=== PATIENT | male | born 2000 | race Caucasian/White ===

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

== ENCOUNTER 2024-03-31 12:46 | Emergency (ER) | payer OTHER ==
[~2024-03-31] VITALS: Ht 177.8 cm; Wt 81.8 kg
[~2024-03-31 12:46] MED LIST: AMITRIPTYLINE H10 M2 PO; LORATADINE10 MG PO; PREDNISONE20 MG PO; PRILOSEC OTC20 MG PO; PROTONIX20 M1 PO
[2024-03-31] MEDS ORDERED: NS 1,000 ML IV ONE (13:15)
[2024-03-31 15:45] VITALS: BP 107/79
[2024-04-01] MEDS ORDERED: AMITRIPTYLINE H25 M2 PO (17:02)
[2024-04-02 15:10] LABS: BASO # 0.05 K/mm3 (0.02-0.10); EOS # 0.43 K/mm3 (0.04-0.40); EOS % 3.9 % (0.0-4.0); HEMATOCRIT 42.4 % (42.0-52.0); HEMOGLOBIN 13.7 g/dL (13.5-18.0); LYMPH# 3.49 K/mm3 (1.50-4.00); MEAN CELL VOLUME 86 fl (78-100); MEAN CORPUSCULAR HEMOGLOBIN 28 pg (27-31); MEAN CORPUSCULAR HGB CONC 32 g/dL (33-37); MEAN PLATELET VOLUME 9.6 fl (7.4-10.4); MONO # 0.89 K/mm3 (0.20-0.80); NEU # 6.06 K/mm3 (1.40-6.50); PLATELET COUNT 425 K/mm3 (130-400); RED BLOOD COUNT 4.92 M/mm3 (4.20-5.60); RED CELL DISTRIBUTION WIDTH 13.6 % (11.5-14.5); WHITE BLOOD COUNT 10.9 K/mm3 (4.8-10.8)
[2024-04-02 15:18] LABS: ALBUMIN 4.5 g/dL (3.5-5.0); ALT/SGPT 19 U/L (0-55); AST-SGOT 21 U/L (5-34); CALCIUM 10.2 mg/dL (8.3-10.5); CARBON DIOXIDE 25 mmol/L (22-29); GLUCOSE 90 mg/dL (75-110); SODIUM 140 mmol/L (136-145); TOTAL BILIRUBIN 0.3 mg/dL (0.2-1.2); TOTAL PROTEIN 8.1 g/dL (6.4-8.3); TROPONIN-I < 0.030 ng/mL (0.00-0.033)
[2024-04-02 15:19] LABS: URINE APPEARANCE CLEAR (CLEAR); URINE BILIRUBIN NEGATIVE (NEGATIVE); URINE COLOR YELLOW (YELLOW); URINE GLUCOSE NEGATIVE (NEGATIVE); URINE KETONE NEGATIVE (NEGATIVE); URINE NITRATE NEGATIVE (NEGATIVE); URINE PROTEIN(semi-quant) NEGATIVE (NEGATIVE)
[2024-04-02 15:20] LABS: URINE BLOOD NEGATIVE (NEGATIVE); URINE LEUKOCYTE ESTERASE NEGATIVE (NEGATIVE); URINE WBC 0-1 /hpf (0-3)
== END 2024-03-31 15:45 | disposition home or self-care (01) ==
LOC: ED 12:46
PROVIDERS: Family Medicine
DX: R51.9 Headache, unspecified (principal); R00.0 Tachycardia, unspecified
CPT/HCPCS: J7030